=== PATIENT | male | born 1980 | race Caucasian/White ===

== ENCOUNTER 2016-11-20 12:28 | Emergency (ER) | payer SELFPAY ==
[~2016-11-20] VITALS: Ht 182.9 cm; Wt 69.0 kg
[2016-11-20 12:29] VITALS: BP 114/58; PULSE 84; RESP 14; TEMP 98.2; O2SAT 97
[2016-11-20] MEDS ORDERED: ULTR50TA5 PO (12:54)
--- NOTE | 2016-11-20 12:54 | PD ---
HPI Chief Complaint: Complaint Time Seen by Provider: 12:40 Travel History International Travel<30 days: No Contact w/Intl Traveler<30days: No Traveled to known affect area: No History of Present Illness HPI This is a 36-year-old gentleman with history of left sided varicocele, who presents today with complaints of exacerbation of his varicocele with pain. The patient states that he's recently moved here from [place]. He's been here since October. He knows that he is supposed to wear tight underwear or jock strap however he states that he's been wearing boxers the last few days. He states that since then he's had pain in his left testicle. He has been seen and evaluated in [place] but is now moved to [place]. He has no other complaints time my examination. PFSH Past Medical History Musculoskeletal: Yes (scoliosis) Tetanus Vaccination: > 5 Years Past Surgical History Abdominal Surgery: Yes (intestinal blockage) Social History Alcohol Use: No Tobacco Use: Yes Substance Use: No Allergies-Medications (Allergen,Severity, Reaction): Coded Allergies: No Known Allergies (Unverified , 11/20/16) Reported Meds & Prescriptions Reported Meds & Active Scripts Active No Active Prescriptions or Reported Medications Review of Systems Except as stated in HPI: all other systems reviewed are Neg General / Constitutional: No: Fever, Chills Gastrointestinal: No: Nausea, Vomiting, Abdominal Pain Genitourinary: Positive: Other (left sided testicle pain with history of varicocele), No: Dysuria, Discharge Physical Exam Narrative GENERAL: Well-nourished, well-developed patient. SKIN: Warm and dry. HEAD: Normocephalic/atraumatic. EYES: No scleral icterus. No drainage. NECK: Supple, trachea midline. GASTROINTESTINAL: Abdomen soft, non-tender, nondistended. GENITOURINARY: Circumcised. Testes descended bilaterally without evidence of rotation. The patient had tenderness in his spermatic cord distribution of his left testicle. There is no testicular pain. There appeared to be palpable tortuous vessels noted in his left spermatic cord distribution. No urethral discharge. NEUROLOGICAL: Awake and alert. Cranial nerves II through XII intact. Motor grossly within normal limits. Five out of 5 muscle strength in all muscle groups. Normal speech. Data Data Last Documented VS Vital Signs Date Time Temp Pulse Resp B/P Pulse Ox O2 Delivery O2 Flow Rate FiO2 11/20/16 12:29 98.2 84 14 114/58 97 Room Air MDM Medical Decision Making Medical Screen Exam Complete: Yes Emergency Medical Condition: Yes Differential Diagnosis Varicocele versus testicular torsion versus epididymitis Narrative Course 36-year-old gentleman with a known history of varicocele the left, who presents today with exacerbation of his varicocele pain. The patient states he normally wears tight underwear however over last several days one boxer shorts. 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 On examination, there does not appear to be told to force testicle. His testicles are nontender but he does have tenderness in his spermatic and venous plexus of his left testicle. I discussed with him that I will write him a prescription for some pain medication (ultram 50mg #15) however he needs to wear tight undergarments to support his scrotum. I've asked our financial counselor to come in and give him information on applying for patient assistance. He is instructed return of the pain worsens or he is concern for rupture. Again at this point there is no acute process. Diagnosis Primary Impression: Left varicocele Additional Instructions: Wear tight underwear or a jock for support. Scripts Tramadol (Ultram)50 Mg Tab50 Mg PO Q8H PRN (PAIN) #15 TAB Ref 0 Prov:Hima Mahajan MD 11/20/16 Disposition: 01 DISCHARGE HOME Condition: Stable Hima Mahajan MD Nov 20, 2016 12:54
== END 2016-11-20 13:41 | disposition home or self-care (01) ==
LOC: NEPC 12:28
DX: I86.1 Scrotal varices (principal); Z72.0 Tobacco use
CPT/HCPCS: 99283

== ENCOUNTER 2017-03-06 01:04 | Emergency (ER) | payer SELFPAY ==
[~2017-03-06] VITALS: Ht 177.8 cm; Wt 67.0 kg
[~2017-03-06 01:04] MED LIST: ULTR50TA5 PO
[2017-03-06 01:05] VITALS: BP 129/72; PULSE 68; RESP 16; TEMP 97.7; O2SAT 100
[2017-03-06] MEDS ORDERED: MAGICADU2 SWISH-SWAL (01:45)
[2017-03-06] MEDS ORDERED: LIDOCAINE VISCOUS 2% SOLN 15 ML UDC PO ONE (01:45)
[2017-03-06] MEDS ORDERED: ALUMINUM/MAGNESIUM/SIMETH 30 ML CUP PO ONE (01:45)
[2017-03-06] MEDS ORDERED: diphenhydrAMINE HCL ELIXIR 12.5 MG/5 ML CUP PO ONE (01:45)
--- NOTE | 2017-03-06 01:51 | PD ---
HPI Chief Complaint: Oral / Dental Pain or Problem Time Seen by Provider: 01:46 Travel History International Travel<30 days: No Contact w/Intl Traveler<30days: No Traveled to known affect area: No History of Present Illness HPI 37-year-old white male presents to emergency department with complaints of a sore underneath his denture for the last few days. He has become increasingly painful. He denies any fever chills. He does state that he lives in a sober living facility and has a history of polysubstance abuse. [facility] Past Medical History Narrative Medical Polysubstance abuse Diminished Hearing: No Genitourinary: Yes Musculoskeletal: Yes (scoliosis) Immunizations Current: Yes Tetanus Vaccination: > 5 Years Influenza Vaccination: No Past Surgical History Abdominal Surgery: Yes (intestinal blockage) Social History Alcohol Use: No Tobacco Use: Yes Substance Use: No Allergies-Medications (Allergen,Severity, Reaction): Coded Allergies: No Known Allergies (Unverified , 11/20/16) Reported Meds & Prescriptions Reported Meds & Active Scripts Active Magic Mouthwash Adult Liq (Multi-Ingredient Mouthwash/Gargle) 120 Ml Susp 5 Ml SWISH-SWAL Q2HR Each 5mL contains: Nystatin 200,000units, Diphenhydramine 4.25mg, Viscous Lidocaine 10mg, Dong syrup 0.8 mL Review of Systems Except as stated in HPI: all other systems reviewed are Neg HENT: Positive: Dental Difficulties, No: Neck Pain, Earache Physical Exam Narrative GENERAL: Well-developed, well-nourished in no acute distress. Nontoxic appearing. HEAD: Normocephalic, atraumatic. EYES: Pupils equal round and reactive. Extraocular motions intact. No scleral icterus. No injection or drainage. ENT: TMs clear without erythema. The external auditory canals clear. Nose: clear . Posterior pharynx is pink and moist. No tonsillar edema or exudate. Uvula midline. Airway patent. Patient has a area of hypertrophy with a systematic ulcer in the left upper maxilla. Patient has a skin tag in the area as well. NECK: Trachea midline.Supple, nontender, moves head freely. No central bony tenderness or spasm. CARDIOVASCULAR: Regular rate and rhythm without murmurs, gallops, or rubs. RESPIRATORY: Clear to auscultation. Breath sounds equal bilaterally. No wheezes , rales, or rhonchi. GASTROINTESTINAL: Abdomen soft, non-tender, nondistended. No hepato-splenomegaly , or palpable masses. No guarding. EXTREMITIES: No clubbing, cyanosis, or edema. No joint tenderness, effusion, or edema noted. BACK: Nontender without deformity or crepitance. No flank tenderness. Data Data Last Documented VS Vital Signs Date Time Temp Pulse Resp B/P Pulse Ox O2 Delivery O2 Flow Rate FiO2 03/06/17 01:05 97.7 68 16 129/72 100 Room Air Orders Al-Mag Hy-Si 40-40-4 Mg/Ml Liq (Mag-Al P (03/06/17 01:45) Diphenhydramine Liq (Benadryl Liq) (03/06/17 01:45) Lidocaine 2% Viscous (Xylocaine 2% Visco (03/06/17 01:45) MDM Medical Decision Making Medical Screen Exam Complete: Yes Emergency Medical Condition: Yes Medical Record Reviewed: Yes Differential Diagnosis MDM: High Differential diagnoses: Strep throat, viral pharyngitis, mono, stenotic ulcer Narrative Course Patient's given Magic mouthwash. This is stomatitis Diagnosis Primary Impression: Ulcerative stomatitis Patient Instructions: General Instructions Additional Instructions: Rest. Force fluids. Saltwater gargles. Tylenol and Advil. Magic mouthwash Follow-up with a primary care doctor in one week. Return to the ER if any problems. Med/Other Pt SpecificInfo: Prescription(s) given Scripts Jojlkkod-Gqouiyavbocifwg-Dyvmiysof Liq (Magic Mouthwash Adult Liq)120 Ml Susp5 Ml SWISH-SWAL Q2HR #120 ML Each 5mL contains: Nystatin 200,000units, Diphenhydramine 4.25mg, Viscous Lidocaine 10mg, Dong syrup 0.8 mL Prov:Marty Grant MD 03/06/17 Disposition: 01 DISCHARGE HOME Condition: Stable Garrett Keith March 06, 2017 01:51
== END 2017-03-06 02:10 | disposition home or self-care (01) ==
LOC: NEPD 01:04
DX: K12.1 Other forms of stomatitis (principal); M41.9 Scoliosis, unspecified; F19.10 Other psychoactive substance abuse, uncomplicated; Z72.0 Tobacco use
CPT/HCPCS: 99283

== ENCOUNTER 2017-12-28 21:29 | Emergency (ER) | payer SELFPAY ==
[~2017-12-28] VITALS: Ht 182.9 cm; Wt 65.0 kg
[~2017-12-28 21:29] MED LIST changes: +MAGICADU2 SWISH-SWAL; -ULTR50TA5 PO
[2017-12-28 22:25] VITALS: BP 101/57; PULSE 71; RESP 18; TEMP 98.6; O2SAT 100
== END 2017-12-29 00:54 | disposition left against medical advice (07) ==
LOC: NED 21:29
DX: J00 Acute nasopharyngitis [common cold] (principal); Z53.21 Procedure and treatment not carried out due to patient leaving prior to being seen by health care provider
CPT/HCPCS: 99281